=== PATIENT | male | born 1980 | race Caucasian/White ===

== ENCOUNTER 2020-09-05 17:13 | Emergency (ER) | payer MEDICAID ==
[~2020-09-05] VITALS: Ht 193 cm; Wt 86.4 kg
[~2020-09-05 17:13] MED LIST: GRIS125O2 PO
[2020-09-05] MEDS ORDERED: POVIDONE-IODINE 10% 15 ML SOLUTION UD TP ONE (17:30)
[2020-09-05] MEDS ORDERED: BACITRACIN 0.9 GM PACKET OINTMENT TP ONE (17:30)
[2020-09-05] MEDS ORDERED: LIDOCAINE 1% 10 ML VIAL INJ ONE (17:30)
[2020-09-05] MEDS ORDERED: PERTUSS(ACELL),DIPH,TET VAC/PF 0.5 ML VIAL IM ONE (18:00)
[2020-09-05] MEDS ORDERED: CEPHALEXIN MONOHYDRATE 500 MG CAPSULE PO ONE (18:00)
[2020-09-05 18:56] VITALS: BP 118/70
== END 2020-09-05 18:57 | disposition home or self-care (01) ==
LOC: EMS 17:13
DX: S61.210A Laceration without foreign body of right index finger without damage to nail, initial encounter (principal); F17.210 Nicotine dependence, cigarettes, uncomplicated; F12.90 Cannabis use, unspecified, uncomplicated; W25.XXXA Contact with sharp glass, initial encounter; Y93.89 Activity, other specified; Y92.89 Other specified places as the place of occurrence of the external cause; Y99.8 Other external cause status
CPT/HCPCS: 12001; 99283; J3490

== ENCOUNTER 2020-09-10 11:36 | Emergency (ER) | payer MEDICAID ==
[~2020-09-10] VITALS: Ht 185.4 cm; Wt 72.7 kg
[2020-09-10 11:39] VITALS: BP 111/57
[2020-09-10] MEDS ORDERED: BACITRACIN 0.9 GM PACKET OINTMENT TP ONE (12:00)
== END 2020-09-10 12:35 | disposition home or self-care (01) ==
LOC: EMS 11:36
DX: S61.211D Laceration without foreign body of left index finger without damage to nail, subsequent encounter (principal); F17.210 Nicotine dependence, cigarettes, uncomplicated; F12.90 Cannabis use, unspecified, uncomplicated; X58.XXXD Exposure to other specified factors, subsequent encounter
CPT/HCPCS: Z7502; Z7610